=== PATIENT | male | born 1985 | race Caucasian/White ===

== ENCOUNTER 2018-02-10 11:47 | Emergency (ER) | payer OTHER ==
[~2018-02-10] VITALS: Ht 170.2 cm; Wt 105.0 kg
[2018-02-10 12:01] VITALS: BP 137/56; PULSE 84; RESP 16; TEMP 98.5; O2SAT 98
[2018-02-10] MEDS ORDERED: IBUP1TAB7 PO (14:13)
[2018-02-10] MEDS ORDERED: ROBA500T PO (14:13)
--- NOTE | 2018-02-10 14:13 | PD ---
HPI Chief Complaint: Back/ Neck Pain or Injury Time Seen by Provider: 13:24 Travel History International Travel<30 days: No Contact w/Intl Traveler<30days: No Traveled to known affect area: No History of Present Illness HPI 32-year-old male presents to emergency room with complaint of left mid back pain 1 week. Denies traumatic injury. 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 His encopresis, incontinence, saddle anesthesias. Denies IV drug use or cancer. Denies fever, vomiting, abdominal pain, change in urine or stool. Denies paresthesias, loss of sensation, decreased range of motion, decreased strength all extremities. Has been taking ibuprofen with some improvement in pain. Rates pain 8/10. No radiation of pain. Worse with movement. Better with rest. Denies history of kidney stones. Denies hematuria. Primary care provider is Dr. Dyson. No known allergies. Denies significant past medical history. Has no other medical complaints. No other modifying factors or associated signs and symptoms. [facility] Past Medical History Medical History: Denies Significant Hx ?: Not Past Surgical History Surgical History: No Previous Surgery Social History Alcohol Use: Yes (once a week) Tobacco Use: Yes (10-20 cigarettes a day) Substance Use: No Allergies-Medications (Allergen,Severity, Reaction): Coded Allergies: No Known Allergies (Verified Allergy, Unknown, 02/10/18) Reported Meds & Prescriptions Reported Meds & Active Scripts Active Ibuprofen 800 Mg Tab 800 Mg PO Q6HR PRN Robaxin (Methocarbamol) 500 Mg Tab 500 Mg PO QID PRN Review of Systems Except as stated in HPI: all other systems reviewed are Neg Physical Exam Narrative GENERAL: Well-nourished, well-developed male patient, in no acute distress; afebrile, nontoxic-appearing SKIN: Warm and dry. HEAD: Atraumatic. Normocephalic. EYES: Pupils equal and round. No scleral icterus. No injection or drainage. ENT: Mucosa pink and moist. Airway patent. NECK: Trachea midline. CARDIOVASCULAR: Regular rate. RESPIRATORY: No accessory muscle use. GASTROINTESTINAL: Obese MUSCULOSKELETAL: Bilateral lower extremities supple and non-tense with 2+ pedal pulses and sensory intact; with full range of motion and 5/5 strength. 2 + DTRs bilaterally. Active dorsiflexion and extension of bilateral feet. Bilateral straight leg raise is negative for low back pain. Ambulatory in room with normal gait. Sitting up in bed at 90. No obvious deformities. No clubbing. No cyanosis. No edema. BACK: No CVA tenderness. no midline point tenderness on palpation of the thoracic or lumbar spine. Tenderness on palpation of left musculature of the thoracic back area; normal skin exam to the area without rash or erythema. no obvious deformities. NEUROLOGICAL: Awake and alert. Oriented 3. No obvious cranial nerve deficits. Motor grossly within normal limits. Normal speech. Moves all extremities. 5/5 strength to all extremities. Sensory intact. PSYCHIATRIC: Appropriate mood and affect; insight and judgment normal. Data Data Last Documented VS Vital Signs Date Time Temp Pulse Resp B/P (MAP) Pulse Ox O2 Delivery O2 Flow Rate FiO2 02/10/18 12:01 98.5 84 16 137/56 (83) 98 Orders Orders Methocarbamol (Robaxin) (02/10/18 14:15) Ibuprofen (Motrin) (02/10/18 14:15) MDM Medical Decision Making Medical Screen Exam Complete: Yes Emergency Medical Condition: Yes Medical Record Reviewed: Yes Differential Diagnosis Left-sided thoracic back pain, muscle strain of back, muscle spasm Narrative Course 32-year-old male with left-sided thoracic back pain to the musculature of the back. No CVA tenderness. Denies history of kidney stones. No change in urine or stool. Denies encopresis, incontinence, saddle anesthesias. Denies traumatic injury. Denies IV drug use or cancer. Patient is afebrile and nontoxic-appearing. Denies fever, vomiting. Neuro exam is unremarkable. No midline tenderness to palpation of the thoracic or lumbar spine. Ibuprofen and Robaxin administered in the ER. Ibuprofen and Robaxin prescribed for home. Instructed patient to follow up with primary care provider. Patient verbalizes understanding and agreement with treatment plan. Patient is medically cleared and stable for discharge. Discussed reasons to return to the emergency department. Patient agrees with treatment plan. The patients vital signs are stable and the patient is stable for outpatient follow-up and treatment. Patient discharged home, stable and in no acute distress. Diagnosis Primary Impression: Left-sided thoracic back pain Qualified Codes: M54.6 - Pain in thoracic spine Referrals: [facility] Primary Care Physician Patient Instructions: Back Pain (ED), General Instructions, Muscle Spasm (ED), Muscle Strain (ED) Additional Instructions: Tylenol or ibuprofen as directed and as needed for pain Robaxin as prescribed and as needed for muscle spasms Heating pad and/or ice to affected area to reduce pain Avoid aggravating activities; increase activity as tolerated Follow-up with primary care provider Return to emergency department immediately with worsening of symptoms Med/Other Pt SpecificInfo: Prescription(s) given Scripts Ibuprofen (Ibuprofen) 800 Mg Tab 800 MG PO Q6HR Y for PAIN, #30 TAB 0 Refills Prov: Alyx Ann 02/10/18 Methocarbamol (Robaxin) 500 Mg Tab 500 MG PO QID Y for MUSCLE SPASM, #30 TAB 0 Refills Prov: Alyx Ann 02/10/18 Disposition: 01 DISCHARGE HOME Condition: Stable Alyx Ann Feb 10, 2018 14:13
[2018-02-10] MEDS ORDERED: IBUPROFEN 800 MG TAB PO ONE (14:15)
[2018-02-10] MEDS ORDERED: METHOCARBAMOL 500 MG TAB PO ONE (14:15)
== END 2018-02-10 15:05 | disposition home or self-care (01) ==
LOC: NEPD 11:47
DX: M54.6 Pain in thoracic spine (principal); E66.9 Obesity, unspecified; F17.210 Nicotine dependence, cigarettes, uncomplicated
CPT/HCPCS: 99283